=== PATIENT | female | born 1990 | race Caucasian/White ===

== ENCOUNTER 2017-06-24 19:01 | Inpatient (IN) | payer OTHER ==
[2017-06-24 19:54] LABS: APPEARANCE,URINE CLEAR; BILIRUBIN,URINE NEGATIVE (NEGATIVE); GLUCOSE, URINE NEGATIVE (NEGATIVE); KETONES,URINE NEGATIVE (NEGATIVE); LEUKOCYTE ESTERASE,URINE NEGATIVE (NEGATIVE); NITRITE,URINE NEGATIVE (NEGATIVE); PROTEIN,URINE NEGATIVE (NEGATIVE); URINE SPECIFIC GRAVITY 1.004; UROBILINOGEN,URINE NEGATIVE mg/dL (<2.0)
--- NOTE | 2017-06-24 20:17 | RADIOLOGY REPORT (SQ) ---
EXAM DESCRIPTION: U/S OB LIMITED COMPLETED DATE/TIME: 06/24/2017 8:07 pm REASON FOR STUDY: No movement, unable to locate FHT COMPARISON: None. TECHNIQUE: Limited transabdominal grayscale ultrasound for evaluation of specific requested obstetri mik parameters. LIMITATIONS: None. FINDINGS: Imaging performed to assess for cardiac activity. No cardiac motion identified. No motion noted. Review of grayscale and cine sequences is made IMPRESSION: Consistent with demise. No cardiac motion identified. No motion evident. Trimester of : Third trimester - 28 weeks to delivery. TECHNICAL DOCUMENTATION: JOB ID: [id number] [employer]- All Rights Reserved
[2017-06-24 20:27] LABS: URINE BARBITURATES SCREEN NEGATIVE; URINE METHADONE SCREEN NEGATIVE; URINE OPIATES LOW NEGATIVE; URINE PHENCYCLIDINE SCREEN NEGATIVE
[2017-06-24 21:03] LABS: ABSOLUTE BASOPHILS # (AUTO) 0.1 10^3/uL (0.0-0.2); ABSOLUTE EOSINOPHILS # (AUTO) 0.1 10^3/uL (0.0-0.6); ABSOLUTE LYMPHOCYTES (AUTO) 2.2 10^3/uL (0.5-4.7); ABSOLUTE MONOCYTES (AUTO) 1.5 10^3/uL (0.1-1.4); ABSOLUTE NEUT (AUTO) 13.9 10^3/uL (1.7-8.2); BASOPHILS % (AUTO) 0.3 % (0-2); EOSINOPHILS % (AUTO) 0.8 % (0-6); HEMATOCRIT 36.1 % (36.0-47.0); HEMOGLOBIN 12.2 g/dL (12.0-15.5); HGB HCT DIFFERENCE 0.5; LYMPHOCYTES % (AUTO) 12.1 % (13-45); MEAN CORPUSCULAR HEMOGLOBIN 30.1 pg (27.0-33.4); MEAN CORPUSCULAR HGB CONC 33.7 g/dL (32.0-36.0); MEAN CORPUSCULAR VOLUME 90 fl (80-97); MONOCYTES % (AUTO) 8.5 % (3-13); RED BLOOD COUNT 4.03 10^6/uL (3.72-5.28); RED CELL DISTRIBUTION WIDTH 14.1 % (11.5-14.0); SEGMENTED NEUTROPHILS % (AUTO) 78.3 % (42-78); WHITE BLOOD COUNT 17.8 10^3/uL (4.0-10.5)
[2017-06-24 21:40] LABS: ALANINE AMINOTRANSFERASE 28 U/L (9-52); ALBUMIN 3.3 g/dL (3.5-5.0); ALKALINE PHOSPHATASE 175 U/L (38-126); ANION GAP 10 (5-19); ASPARTATE AMINO TRANSFERASE 29 U/L (14-36); BILIRUBIN,DIRECT 0.2 mg/dL (0.0-0.4); BILIRUBIN,TOTAL 0.4 mg/dL (0.2-1.3); BLOOD UREA NITROGEN 5 mg/dL (7-20); CALCIUM 9.3 mg/dL (8.4-10.2); CARBON DIOXIDE 23 mmol/L (22-30); CHLORIDE 107 mmol/L (98-107); CREATININE RESULT 0.45 mg/dL (0.52-1.25); GLUCOSE 82 mg/dL (75-110); POTASSIUM 3.5 mmol/L (3.6-5.0); SODIUM 139.5 mmol/L (137-145); TOTAL PROTEIN 6.1 g/dL (6.3-8.2)
[2017-06-24 21:41] LABS: PROTHROMBIN TIME 13.4 SEC (11.4-15.4)
[2017-06-24 21:42] LABS: PARTIAL THROMBOPLASTIN TIME 25.5 SEC (23.5-35.8)
[2017-06-24] MEDS ORDERED: MISOPROSTOL 0.1 MG TABLET PO ONE (21:58)
[2017-06-24] MEDS ORDERED: MISOPROSTOL 0.1 MG TABLET ONE (22:10)
[2017-06-24] MEDS: RINGERS SOLUTION,LACTATED 1,000 ML IV PRN (22:16)
[2017-06-24] MEDS ORDERED: ZOLPIDEM TARTRATE 5 MG TABLET PO ONE (22:26)
[2017-06-24] MEDS ORDERED: ZOLPIDEM TARTRATE 5 MG TABLET ONE (22:29)
[2017-06-25] MEDS ORDERED: MISOPROSTOL 0.1 MG TABLET ONE ×2 (01:49→05:48)
[2017-06-25] MEDS: MISOPROSTOL 0.1 MG TABLET PO SCH ×2 (01:55→05:50)
[2017-06-25] MEDS ORDERED: ACETAMINOPHEN 325 MG TABLET PO ONE (06:09)
[2017-06-25] MEDS ORDERED: ACETAMINOPHEN 325 MG TABLET ONE (06:11)
--- NOTE | 2017-06-25 10:52 | L&D Progress Notes ---
PROGRESS NOTES Datetime Report Generated by CPN: 06/25/2017 10:52 PROGRESS NOTE Impression: Normal Progression of Labor; Rupture of Membranes Procedures: Sterile Vag Exam Plan: Continue Present Management; Induction Informed Consent Obtained: Vaginal Delivery; Induction of Labor Vital Signs : Reviewed Comment: 37+5ega with IUFD. IOL due to IUFD. Pt was initiated with IOL with cytotec x 2 due to cvx closed at admission. Cvx upon arrival and assumption of care was 1cm. SROM at 0822 and cvx now 2-350/-2. Pt desires epidural. Plan for epidural and then will begin pitocin for IOL due to IUFD. Pt comfortable in room now and support present. REviewed plan of care with family. Anticpate VAGINAL EXAM Dilatation: 2 Effacement: 50 Station: -2 Contractions: irregular FETUS A FHR - Baseline: 0 : 37.4 Presentation: Vertex SIGNATURE SIGNATURE: [id number] Signature: with User ID: [email or web address]
[2017-06-25] MEDS ORDERED: BUPIVACAINE HCL 0.25 % INJ/PF (2.5 MG/1 ML) 30 ML VIAL ONE (11:20)
[2017-06-25] MEDS ORDERED: FENTANYL/BUPIVACAINE/NS/PF 200 MCG/100 ML RTUINJ EPI ONE ×2 (11:20→21:58)
[2017-06-25] MEDS ORDERED: EPHEDRINE SULFATE INJ 50 MG/1 ML AMPULE ONE ×2 (11:20→22:42)
[2017-06-25] MEDS ORDERED: OXYTOCIN/NORMAL SALINE 20 UNIT/1,000 ML RTUINJ ONE (12:41)
[2017-06-25] MEDS ORDERED: OXYTOCIN/NORMAL SALINE 20 UNIT/1,000 ML RTUINJ IV PRN (12:45)
--- NOTE | 2017-06-25 16:58 | L&D Progress Notes ---
PROGRESS NOTES Datetime Report Generated by CPN: 06/25/2017 16:58 PROGRESS NOTE Impression: Normal Progression of Labor Procedures: Sterile Vag Exam Plan: Continue Present Management; Induction Informed Consent Obtained: Vaginal Delivery; Risks, Benefits and Alternatives Discussed Comment: Pt now comfortable with epidural. Pt has been on pitocin since approximately 1300. Cvx changed from 2-3 to now 4-5cm. Due to patients positioning there is some cervical swelling. Will give benadryl and continue with IOL with pitocin. Vertex presentation now palpable. call circuit worker MD from last evening reports US done at admission at bedside and vertex presentation VAGINAL EXAM Dilatation: 4 Effacement: 50 Station: -1 Contractions: q 1-2 FETUS C SIGNATURE: [id number] Signature: with User ID: [email or web address]
[2017-06-25] MEDS ORDERED: DIPHENHYDRAMINE HCL 50 MG/ML VIAL IV ONE (17:00)
[2017-06-25] MEDS ORDERED: DIPHENHYDRAMINE HCL 50 MG/ML VIAL ONE (17:18)
[2017-06-25] MEDS ORDERED: NALBUPHINE HCL INJ 10 MG/1 ML AMPULE ONE (22:28)
--- NOTE | 2017-06-25 22:35 | L&D Progress Notes ---
PROGRESS NOTES Datetime Report Generated by CPN: 06/25/2017 22:35 PROGRESS NOTE Impression: Normal Progression of Labor Procedures: Sterile Vag Exam Plan: Continue Present Management; Induction Informed Consent Obtained: Vaginal Delivery; Risks, Benefits and Alternatives Discussed Vital Signs : Reviewed Comment: pt called out and feeling more pain and pressure. Epidural bag to be redone as bag has run out. Cvx now 6-7/100/0 and will give Nubain 10mg IV now. Pt verbalized understanding of plan of care. Anticipate of IUFD. Pt is reviewing consent for autopsy. VAGINAL EXAM Dilatation: 6 Effacement: 100 Station: 0 FETUS A FHR - Baseline: 0 FETUS C SIGNATURE: [id number] Signature: with User ID: [email or web address]
[2017-06-25] MEDS ORDERED: LIDOCAINE 2% INJ-PF (20 MG/ML) 10 ML AMPUL ONE (22:36)
[2017-06-25] MEDS: RINGERS SOLUTION,LACTATED 1,000 ML IV PRN (22:57)
[2017-06-26] MEDS ORDERED: NALBUPHINE HCL INJ 10 MG/1 ML AMPULE ONE (00:28)
[2017-06-26] MEDS ORDERED: MISOPROSTOL 0.2 MG TABLET ONE (00:40)
[2017-06-26] MEDS ORDERED: LIDOCAINE 1% INJ-PF (10 MG/ML) 30 ML SDV ONE ×2 (00:40)
[2017-06-26] MEDS ORDERED: OXYTOCIN/NORMAL SALINE 0 UNIT/0 ML RTUINJ ONE (00:40)
[2017-06-26] MEDS ORDERED: LIDOCAINE 2% INJ-PF (20 MG/ML) 10 ML AMPUL ONE (00:51)
[2017-06-26] MEDS ORDERED: ONDANSETRON HCL INJ/PF 4 MG/2 ML SDV ONE (02:27)
[2017-06-26] MEDS ORDERED: FENTANYL CITRATE INJ/PF 100 MCG/2 ML AMPUL ONE (03:15)
[2017-06-26] MEDS ORDERED: PROMETHAZINE HCL 25 MG SUPP.RECT PR PRN (03:30)
[2017-06-26] MEDS ORDERED: PROMETHAZINE HCL INJ 25 MG/1 ML VIAL IV PRN (03:30)
[2017-06-26] MEDS ORDERED: ACETAMINOPHEN 650 MG SUPP.RECT PR PRN (03:30)
[2017-06-26] MEDS ORDERED: ACETAMINOPHEN WITH CODEINE #3 TABLET PO PRN ×2 (03:30)
[2017-06-26] MEDS ORDERED: OXYTOCIN/NORMAL SALINE 20 UNIT/1,000 ML RTUINJ IV PRN (03:30)
[2017-06-26] MEDS ORDERED: PROMETHAZINE HCL 25 MG TABLET PO PRN (03:30)
[2017-06-26] MEDS ORDERED: DIPH/PERTUSS(ACELL)/TETANUS VAC/PF 0.5 ML SYR (>=10YO) IM PRN (03:30)
[2017-06-26] MEDS ORDERED: DIBUCAINE 1% OINTMENT 28 GM TP PRN (03:30)
[2017-06-26] MEDS ORDERED: ZOLPIDEM TARTRATE 5 MG TABLET PO PRN (03:30)
[2017-06-26] MEDS ORDERED: NA PHOS,M-B/NA PHOS,DI-BA (ADULT) 133 ML ENEMA PR PRN (03:30)
[2017-06-26] MEDS ORDERED: MEASLES,MUMPS&RUBELLA VACC/PF 0.5 ML VIAL SUBCUT PRN (03:30)
[2017-06-26] MEDS ORDERED: DIPHENHYDRAMINE HCL 25 MG CAPSULE PO PRN (03:30)
[2017-06-26] MEDS ORDERED: BENZOCAINE/MENTHOL AEROSOL SPRAY 56 ML TOP PRN (03:30)
[2017-06-26] MEDS ORDERED: GLYCERIN/WITCH HAZEL LEAF 1 EACH MED..PAD TP PRN (03:30)
[2017-06-26] MEDS ORDERED: MAGNESIUM HYDROXIDE SUSP 30 ML UDCUP PO PRN (03:30)
[2017-06-26] MEDS ORDERED: PSEUDOEPHEDRINE HCL 30 MG TABLET PO PRN (03:30)
[2017-06-26] MEDS ORDERED: IBUPROFEN 800 MG TABLET PO SCH (06:00)
--- NOTE | 2017-06-26 06:05 | Delivery Summary ---
Del Sum A-C Datetime Report Generated by CPN: 06/26/2017 06:04 DELIVERY PERSONNEL DELIVERY PERSONNEL: [id number] Delivery Doctor:: Lashae Roberts MD Anesthesiologist:: Nico Agosto MD Labor and Delivery Nurse:: Magalys Godwin RN Labor and Delivery Nurse:: Natalee Escudero RN Hot Knife Cutter/TIRE STRIPPER: Cristal Trujillo CNA MATERNAL INFORMATION Delivery Anesthesia: Local; Epidural Medications After Delivery: Pitocin Bolus-Please Comment; Pitocin Drip 20 Units/1000ml NSS Meds After Delivery Comment: 20 units pitocin in 1000mL NS Estimated Blood Loss (ml): 500 Maternal Complications: Other Other Maternal Complications: IUFD prior to Indxn Provider Comments: Known 37+6ega demise. Pt progressed to c/c/+2 and had strong desire to push. Male infant delivered in MADDIE presentation with no tone and no heart beat. Very tight nuchal cord x 2 unable to reduce with compound right hand. Very Tight true knot noted in cord with scant to minimal blood distal to knot ( side). Proximal to very tight true knot (placenta side) cord is distended with blood. Will send placenta to pathology. Perineal laceration repaired with good hemostasis. FF at U with good tone after pitocin IV and misoprostol pr. Baby boy wrapped and given to mother. Cord findings reviewed with family. Family have decided against autopsy and chromosomes due to cord findings. LABOR SUMMARY EDC: 07/11/2017 00:00 No. Babies in Womb: 1 Attempted: No Labor Anesthesia: Epidural LABOR INFORMATION Reason for Induction: Demise Onset of Labor: 06/25/2017 22:27 Complete Dilatation: 06/26/2017 01:52 Cervical Ripening Agents: Cytotec @ Oxytocin: Induction Group B Beta Strep: Negative Steroids Given: None Reason Steroids Not Administered: Not Applicable MEMBRANES Membranes Rupture Method: Spontaneous Rupture of Membranes: 06/25/2017 08:22 Length of Rupture (hr): 18.75 Amniotic Fluid Color: Bloody Amniotic Fluid Amount: Moderate Amniotic Fluid Odor: Normal STAGES OF LABOR Stage 1 hr: 3 Stage 1 min: 25 Stage 2 hr: 1 Stage 2 min: 15 Stage 3 hr: 0 Stage 3 min: 5 Total Time in Labor hr: 4 Total Time in Labor min: 45 VAGINAL DELIVERY Episiotomy: None Laceration #1: Perineal Laceration Extension #1: N/A Laceration Repair: Yes Laceration Repair Note: superficial vaginal laceration repaired with good hemostasis Sponge Count Correct: Yes Sharps Count Correct: Yes CSECTION DELIVERY Primary Indication: N/A Secondary Indication: N/A CSection Incidence: N/A Labor: N/A Elective: N/A BABY A INFORMATION Delivery Date/Time: 06/26/2017 03:07 Method of Delivery: Vaginal Born in Route : No : N/A Forceps: N/A Vacuum Extraction: N/A Shoulder Dystocia : No PRESENTATION/POSITION BABY A Presentation: Cephalic Cephalic Presentation: Vertex Vertex Position: Right Occipital Anterior Breech Presentation: N/A PLACENTA INFORMATION BABY A Placenta Delivery Time : 06/26/2017 03:12 Placenta Method of Delivery: Spontaneous Placenta Status: Delivered SCORES BABY A Heart Rate 1 min: Absent Resp Effort 1 min: Absent Reflex Irritability 1 min: No Response Muscle Tone 1 min: Flaccid Color 1 min: Blue/Pale Resuscitation Effort 1 min: N/A SCORE 1 MIN: 0 Heart Rate 5 min: Absent Resp Effort 5 min: Absent Reflex Irritability 5 min: No Response Muscle Tone 5 min: Flaccid Color 5 min: Blue/Pale Resuscitation Effort 5 min: N/A SCORE 5 MIN: 0 Heart Rate 10 min: Absent Resp Effort 10 min: Absent Reflex Irritability 10 min: No Response Muscle Tone 10 min: Flaccid Color 10 min: Blue/Pale Resuscitation Effort 10 min: N/A SCORE 10 MIN: 0 INFANT INFORMATION BABY A Gestational Age at Delivery: 37.6 Gestational Status: Early Term- 37- 38.6 Weeks Outcome : Infant Sex: Male WEIGHT/LENGTH BABY A Infant Birthweight (gm): 3628 Weight (lb): 8 Infant Weight (oz): 0 Length (in): 21.00 Infant Length (cm): 53.34 CORD INFORMATION BABY A No. Cord Vessels: 3 Nuchal Cord : Around Neck x2, Tight True Knot: 1 Cord Blood Taken: Yes-For Storage (Mom's Blood type +) Infant Suction: None ASSESSMENT BABY A Complications: Other Infant Complications- Other: IUFD Skin to Skin: No Financial Economist/ALS Called : No Transferred To: Remains with Mother BABY B INFORMATION : N/A SIGNATURES Signature: with User ID: [email or web address]
[2017-06-26] MEDS ORDERED: FAMOTIDINE 20 MG TABLET PO SCH (10:00)
[2017-06-26] MEDS ORDERED: FERROUS SULFATE 325 MG TABLET PO SCH (10:00)
[2017-06-26] MEDS ORDERED: DOCUSATE SODIUM 100 MG CAPSULE PO SCH (10:00)
[2017-06-26] MEDS ORDERED: SENNOSIDES/DOCUSATE 8.6-50 MG 1 EACH TABLET PO SCH (10:00)
[2017-06-26] MEDS ORDERED: PRENATAL VITAMIN W-O CA NO5/FE FUMARATE/FA CAPSULE PO SCH (10:00)
[2017-06-26] MEDS ORDERED: PRENATAL VITAMIN W DHA CAPSULE PO SCH (10:00)
[2017-06-26 13:41] LABS: HEMATOCRIT 29.6 % (36.0-47.0); HGB HCT DIFFERENCE 0.7; MEAN CORPUSCULAR HEMOGLOBIN 30.5 pg (27.0-33.4); MEAN CORPUSCULAR HGB CONC 34.1 g/dL (32.0-36.0); MEAN CORPUSCULAR VOLUME 89 fl (80-97); RED BLOOD COUNT 3.31 10^6/uL (3.72-5.28); RED CELL DISTRIBUTION WIDTH 14.3 % (11.5-14.0); WHITE BLOOD COUNT 25.5 10^3/uL (4.0-10.5)
[2017-06-26 13:50] LABS: HEMOGLOBIN 10.1 g/dL (12.0-15.5)
--- NOTE | 2017-06-26 14:01 | PDOC PROGRESS REPORT ---
Subjective-OB Subjective: Post Delivery Day: 1 26 year old. Denies any needs at this time, pt verbalizes being ready for discharge, lochia is stable, pain well controlled, voiding without difficulty, coping and grieving appropriately Physical Exam (OB) Vital Signs: Intake & Output 06/25/17 06/26/17 06/27/17 06:59 06:59 06:59 Weight 78.55 kg - General General Appearance: Appears well In distress: None - Episiotomy/Laceration Site Condition: Well Approximated - Lochia Lochia Amount: Scant < 10 ml Lochia Color: Rubra/Red - Abdomen Description: Soft, Round Hernia Present: No Bowel Sounds: Normoactive Flatus Presence: Present Fundal Description: Firm Fundal Height: u/u - u/2 Objective-Diagnostic Laboratory: 06/26/17 13:18 06/24/17 20:30 06/26/17 13:18 WBC 25.5 H RBC 3.31 L Hgb 10.1 L D Hct 29.6 L MCV 89 MCH 30.5 MCHC 34.1 RDW 14.3 H Plt Count 243 Assessment and Plan(PN) - Assessment and Plan (1) Acute blood loss anemia Is this a current diagnosis for this admission?: Yes Plan: ferrous sulfate increase dietary iron (2) IUFD (intrauterine ) Is this a current diagnosis for this admission?: Yes Plan: f/u in office in 1 week (3) Vaginal delivery Is this a current diagnosis for this admission?: Yes Plan: d/c home today - Time Spent with Patient Time with patient: Less than 15 minutes Critical Time spent with patient: Less than 15 minutes Medications reviewed and adjusted accordingly: Yes - Disposition Anticipated Discharge: Home Within: within 24 hours
--- NOTE | 2017-06-26 14:03 | PDOC DISCHARGE SUMMARY ---
Final Diagnosis Discharge Date: 06/26/17 - Final Diagnosis (1) Acute blood loss anemia Is this a current diagnosis for this admission?: Yes (2) IUFD (intrauterine ) Is this a current diagnosis for this admission?: Yes (3) Vaginal delivery Is this a current diagnosis for this admission?: Yes Discharge Data - Discharge Medication Home Medications: Vit No.129/Iron/Folic [ One Daily Tablet] 1 each PO DAILY 06/24 Docusate Sodium [Colace 100 mg Capsule] 100 mg PO BID #60 capsule 06/26/17 Ferrous Sulfate [Feosol 325 mg Tablet] 325 mg PO BID #60 tablet 06/26/17 Ibuprofen [Motrin 800 mg Tablet] 800 mg PO Q8 #60 tablet 06/26/17 Gestational Age: 37.6 Reason(s) for Admission: Stillborn Procedures: Cerciage Intrapartum Procedure(s): Spontaneous Vaginal Delivery Complication(s): Laceration-Perineal Laceration-Degree: 2nd - Data Baby 1 Male at 1 minute: 0 at 5 minutes: 0 Weight: 3628 kg Home with Mother: No Complications: Yes - iufd - Diagnosis Test Laboratory: 06/24/17 06/24/17 06/26/17 19:30 20:30 13:18 RBC 4.03 3.31 L Hgb 12.2 10.1 L D Hct 36.1 29.6 L Urine Opiates Screen NEGATIVE - Discharge information/Instructions Discharge Activity: Activity As Tolerated, Pelvic Rest, No tub bath Discharge Diet: Regular Disposition: HOME, SELF-CARE Follow up with: [facility] in: 1, Weeks - f/u sunday or sunday
[2017-06-26 14:21] VITALS: BP 108/76
[2017-06-26] MEDS ORDERED: ACETAMINOPHEN 325 MG TABLET PO ONE (15:28)
[2017-06-26] MEDS ORDERED: ACETAMINOPHEN 325 MG TABLET ONE (15:30)
[2017-06-26] MEDS ORDERED: IBUPROFEN 800 MG TABLET ONE (15:34)
--- NOTE | 2017-06-26 16:51 | Admission Physical ---
Datetime Report Generated by CPN: 06/26/2017 16:51 CURRENT ADMISSION Chief Complaint: Decreased Movement Chief Complaint Other: No movement since 1300 hrs on 06/24/2017 Indication for Induction: Demise Indication for Induction: Term, Intrauterine ; No Active Labor; Intact Membranes Admit Plan: Admit to Unit; Initiate Labor Induction Protocol ALLERGIES Medication Allergies: No Medication Allergies: No Known Allergies (06/24/2017) Latex: No Latex Allergies OBSTETRICAL HISTORY EDC: 07/11/2017 00:00 : 1 Para: 0 Term: 0 : 0 SAB: 0 IAB: 0 Ectopic: 0 Livin Cesareans: 0 VBACs: 0 Multiple Births: 0 Gestational Diabetes: No Rh Sensitization: No Incompetent Cervix: No ESSIE: No Infertility: No ART Treatment: No Uterine Anomaly: No IUGR: No Hx Previous C/S: No Macrosomia: No Hx Loss/Stillborn: No PIH: No Hx : No Placenta Previa/Abruption: No Depression/PP Depression: No PTL/PROM: No Post Hemorrhage: No Current Procedures: Ultrasound; NST Obstetrical History Comments: g1-current , IUFD @ 37+4 weeks SEE RECORDS Alcohol: No Marijuana : No Cocaine: No Other Illicit Drugs: No Cigarettes: Never Smoker. [id number] MEDICAL HISTORY Diabetes: No Blood Transfusion: No Pulmonary Disease (Asthma, TB): No Breast Disease: No Hypertension: No Beader Surgery: No Heart Disease: No Hosp/Surgery: No Autoimmune Disorder: No Anesthetic Complications: No Kidney Disease: No Abnormal Pap Smear: No Neuro/Epilepsy: No Psychiatric Disorders: No Other Medical Diseases: No Hepatitis/Liver Disease: No Significant Family History: No Varicosities/Phlebitis: No Trauma/Violence : No Thyroid Dysfunction: No INFECTIOUS HISTORY Gonorrhea: No Genital Herpes: No Chlamydia: No Tuberculosis: No Syphilis: No Hepatitis: No HIV/AIDS Exposure: No Rash or Viral Illness: No HPV: No PHYSICAL EXAM General: Normal HEENT: Normal Neurologic: Normal Thyroid: Deferred Heart: Normal Lungs: Normal Breast: Deferred Back: Normal Abdomen: Normal Genitourinary Exam: Normal Extremities: Normal DTRs: Normal Pelvic Type: Adequate Vital Signs: Reviewed; Within Normal Limits VAGINAL EXAM Dilatation: 6 Dilatation: 4 Dilatation: 2 Effacement: 100 Effacement: 50 Effacement: 50 Station: 0 Station: -1 Station: -2 Contraction Comments: q 1-2 Contraction Comments: irregular FETUS A EGA: 37.4 FHR Comments: No Heart Motion detected on US x2, once by Dr Michaud and then by US Tech Presentation: Vertex Admit Comment: Will admit for Induction for IUFD INFORMED CONSENT Informed Consent Obtained: Vaginal Delivery; Risks, Benefits and Alternatives Discussed Informed Consent Obtained: Vaginal Delivery; Risks, Benefits and Alternatives Discussed Informed Consent Obtained: Vaginal Delivery; Induction of Labor Signature: with User ID: [email or web address]
== END 2017-06-26 16:49 | disposition home health service (06) | DRG 775 ==
LOC: LC 19:01 → LR 20:13
PROVIDERS: ADMIT Student in an Organized Health Care Education/Training Program; ATTEND Student in an Organized Health Care Education/Training Program
PROC: 3E033VJ Introduction of Other Hormone into Peripheral Vein, Percutaneous Approach (ICD-10-PCS; 2017-06-25)
PROC: 10E0XZZ Delivery of Products of Conception, External Approach (ICD-10-PCS; principal; 2017-06-26)
PROC: 0KQM0ZZ Repair Perineum Muscle, Open Approach (ICD-10-PCS; 2017-06-26)
DX: O36.4XX0 Maternal care for intrauterine death, not applicable or unspecified (principal); D62 Acute posthemorrhagic anemia; Z37.1 Single stillbirth; O36.8130 Decreased fetal movements, third trimester, not applicable or unspecified; Z3A.37 37 weeks gestation of pregnancy; O69.2XX0 Labor and delivery complicated by other cord entanglement, with compression, not applicable or unspecified; O69.1XX0 Labor and delivery complicated by cord around neck, with compression, not applicable or unspecified; O32.6XX0 Maternal care for compound presentation, not applicable or unspecified; O70.1 Second degree perineal laceration during delivery; O99.02 Anemia complicating childbirth
CPT/HCPCS: 36415; 76815; 80053; 80307; 81005; 85025; 85027; 85362; 85610; 85730; 86592; 86850; 86900; 86901; 88307; 94760; J1200; J2300; J2405; J2590; J3010; J3490